=== PATIENT | male | born 1985 | race Caucasian/White ===

== ENCOUNTER 2018-12-03 12:29 | Emergency (ER) | payer SELFPAY ==
[~2018-12-03] VITALS: Ht 177.8 cm; Wt 74.8 kg
[2018-12-03 12:41] VITALS: BP_SYST 105
--- NOTE | 2018-12-03 13:38 | NUR ---
Patient to ER bed H1 to gown for evaluation. Side rails up.
--- NOTE | 2018-12-03 13:40 | NUR ---
Pt brought by self, A&Ox4, pt presents to ER with sutures on R middle finger to be removed , no s/s of infection, skin pink and warm, cap refill <3.
--- NOTE | 2018-12-03 13:42 | NUR ---
Jenny Daily [employer] at bedside examining patient and removing sutures
[2018-12-03] MEDS ORDERED: BACITRACIN 1 GM OINT TP ONE (13:45)
[2018-12-03 14:23] VITALS: BP_SYST 128
--- NOTE | 2018-12-03 14:23 | NUR ---
Patient given written and verbal discharge instructions and verbalizes understanding. ER MD discussed with patient the results and treatment provided. Patient in stable condition. ID arm band removed. Rx of Keflex given. Patient educated on pain management and to follow up with PMD. Pain Scale 2/10 tolerable for patient. Opportunity for questions provided and answered. Medication side effect fact sheet provided.
== END 2018-12-03 14:23 | disposition home or self-care (01) ==
LOC: SED 12:29
DX: S60.131A Contusion of right middle finger with damage to nail, initial encounter (principal); Z48.02 Encounter for removal of sutures; X58.XXXA Exposure to other specified factors, initial encounter; Y93.89 Activity, other specified; Y92.89 Other specified places as the place of occurrence of the external cause; Y99.8 Other external cause status
CPT/HCPCS: 99283